=== PATIENT | female | born 1980 | race Caucasian/White ===

== ENCOUNTER 2017-09-08 09:24 | Emergency (ER) | payer OTHER ==
--- NOTE | 2017-09-08 16:44 | EDM.PDOC ---
ED HPI GENERAL MEDICAL PROBLEM - General Chief Complaint: Laceration Stated Complaint: LEFT FINGER LACERATION Time Seen by Provider: 09/08/17 10:20 Source of Information: Reports: Patient History Limitations: Reports: No Limitations - History of Present Illness INITIAL COMMENTS - FREE TEXT/NARRATIVE: This is a pleasant 37yo F who present to the ER for a laceration of the right thumb. She states she was throwing out a broken coffee cup and the ceramic cup cut her right thumb near the base. IT bled a lot and she is here for sutures. Onset: Sudden Location: Reports: Upper Extremity, Right Severity: Mild Improves with: Reports: None Worsens with: Reports: Movement Associated Symptoms: Reports: No Other Symptoms - Related Data Allergies Allergy/AdvReac Type Severity Reaction Status Date / Time bee venom protein (honey bee) Allergy Other Verified 09/08/17 14:35 Home Meds: Home Meds Cetirizine HCl [Zyrtec] 10 mg PO DAILY 09/08/17 [History] Multivit-Min/Iron Fum/Folic AC [Vpxeq-Ccdcyij-Dmsopceh Tablet] 1 tab PO DAILY [History] Past Medical History - Past Health History Medical/Surgical History: Denies Medical/Surgical History IS SUPPORT ANALYST History: Reports: , Other (See Below) Other OB/BYN History: tubal ligation Social & Family History - Family History Family Medical History: Noncontributory - Tobacco Use Smoking Status *Q: Never Smoker - Caffeine Use Caffeine Use: Reports: Coffee - Alcohol Use Days Per Week of Alcohol Use: 3 Number of Drinks Per Day: 1 Total Drinks Per Week: 3 - Recreational Drug Use Recreational Drug Use: No ED ROS GENERAL - Review of Systems Review Of Systems: ROS reveals no pertinent complaints other than HPI. ED EXAM, SKIN/RASH Exam: See Below Exam Limited By: No Limitations General Appearance: Alert, WD/WN, No Apparent Distress Eye Exam: Bilateral Eye: EOMI, PERRL Skin: Warm, Dry, Wound/Incision (3cm right thumb proximally) ED SKIN PROCEDURES - Laceration/Wound Repair Right Dorsal Finger Lac/Wound length In cm: 3 Appearance: Subcutaneous Distal NVT: Neuro & Vascular Intact, No Tendon Injury Anesthetic Type: Local Local Anesthesia - Lidocaine (Xylocaine): 1% Plain Skin Prep: Providone-Iodine (Betadine) Saline Irrigation (cc's): 125 Exploration/Debridement/Repair: Wound Explored, Explored to Base Closed with: Sutures Suture Size: other (5-0) # of Sutures: 6 Suture Type: Nylon Tetanus Status Addressed: Yes Complications: No Course - Vital Signs Last Recorded V/S: Last Vital Signs Temp 36.6 C 09/08/17 14:40 Pulse 70 09/08/17 14:40 Resp 16 09/08/17 14:40 BP 116/70 09/08/17 14:40 Pulse Ox Departure - Departure Time of Disposition: 11:20 Disposition: Home, Self-Care 01 Condition: Good Clinical Impression: Laceration - Discharge Information Instructions: Laceration Care, Adult Referrals: PCP,None [Primary Care Provider] - Forms: ED Department Discharge Care Plan Goals: Keep sutures clean and dry. Leave dressing on x 3 days. Change as needed. Return to physician to have sutures removed in 5 to 10 days. - Problem List & Annotations (1) Laceration SNOMED Code(s): 187906453 Code(s): [id number] - Status: Acute Priority: High Current Visit: Yes - Problem List Review Problem List Initiated/Reviewed/Updated: Yes - Assessment/Plan Plan: Counseled on wound care and management. RTC for suture removal in 5-7 days. Discussed f/u for infection or wound concerns.
== END 2017-09-08 14:49 | disposition home or self-care (01) ==
LOC: LB.ED 09:24
DX: S61.011A Laceration without foreign body of right thumb without damage to nail, initial encounter (principal); Z91.030 Bee allergy status; Z79.899 Other long term (current) drug therapy; W20.8XXA Other cause of strike by thrown, projected or falling object, initial encounter
CPT/HCPCS: 12002; 99282-25